=== PATIENT | male | born 1985 | race Caucasian/White ===

== ENCOUNTER 2019-10-08 12:44 | Observation (INO) | payer BC ==
[2019-10-08] MEDS ORDERED: Sodium Chloride 0.9% 10 ML Syringe FLUSH PRN ×2 (12:58→19:43)
[2019-10-08] MEDS ORDERED: Aspirin 81 MG Tab.Chew PO ONE (12:58)
[2019-10-08] MEDS ORDERED: Sodium Chloride 0.9% 2.5 ML Syringe FLUSH PRN ×2 (12:58→19:43)
[2019-10-08] MEDS ORDERED: Sodium Chloride 0.9% 1,000 ML IV ONE ×3 (13:10→16:51)
--- NOTE | 2019-10-08 13:32 | EDM.PDOC ---
ED HPI GENERAL MEDICAL PROBLEM - General Chief Complaint: Chest Pain Stated Complaint: chest pain Time Seen by Provider: 10/08/19 12:56 - History of Present Illness INITIAL COMMENTS - FREE TEXT/NARRATIVE: History of present illness: 34-year-old male presenting with left-sided chest pain over the left lower rib starting just prior to arrival here. For started to feel a fluttering sensation in the chest while sitting, driving his car. Then started to feel a discomfort, mostly described as a sharp sensation. Does report some prior episodes of this in the past but never sought medical care. Pain does not radiate anywhere else. He does report some worsening of pain with deep inspiration. Otherwise previously healthy. The patient does drive throughout the day for work but reports he frequently gets out of the car and walks around making many stops during his long driving day. Review of systems: As per history of present illness and below otherwise all systems reviewed and negative. Past medical history: As per history of present illness and as reviewed below otherwise noncontributory. Surgical history: As per history of present illness and as reviewed below otherwise noncontributory. Social history: No reported history of drug or alcohol abuse. Chewing tobacco. Family history: As per history of present illness and as reviewed below otherwise noncontributory. Physical exam: GEN: no acute distress, well appearing HEENT: Atraumatic, normocephalic, mucous membranes moist, Neck: supple, nontender, trachea midline. Lungs: No respiratory distress. Heart: Mildly tachycardic Abdomen: Soft, nondistended, nontender. Back: nontender Extremities: Atraumatic. Neurovascularly intact. Neuro: Awake, alert, oriented. Neuro Exam nonfocal. Psych, appears very anxious Skin: warm, dry, no lesions Diagnostics: Chest x-ray, EKG, labs, d-dimer Therapeutics: Aspirin, fluids MDM: Impression: [] Plan: [] Definitive disposition and diagnosis as appropriate pending reevaluation and review of above. Left Sternal/Arm Pain Score (Numeric/FACES): 3 - Related Data Allergies Allergy/AdvReac Type Severity Reaction Status Date / Time azithromycin [From Zithromax] Allergy Hives Verified 10/08/19 12:51 Home Meds: Home Meds . [No Known Home Meds] 02/16/15 [History] Past Medical History - Infectious Disease History Infectious Disease History: Reports: None - Past Surgical History HEENT Surgical History: Reports: Oral Surgery, Tonsillectomy Social & Family History - Family History Family Medical History: Noncontributory - Tobacco Use Smoking Status *Q: Never Smoker - Recreational Drug Use Recreational Drug Use: No ED ROS GENERAL - Review of Systems Review Of Systems: See Below (See HPI) ED EXAM, GENERAL - Physical Exam Exam: See Below (see HPI) EKG INTERPRETATION EKG Interpretation Comments: EKG performed today at 12:44 PM sinus tachycardia, rate 109, borderline i ntraventricular conduction delay, borderline prolonged QT interval. No STEMI Course - Vital Signs Text/Narrative:: Low risk for coronary artery disease. Heart score 1. Symptoms started at rest. Is mildly tachycardic. Appears very anxious. However patient also does drive for hours a day. Otherwise low risk for PE/DVT. Will check d-dimer. Family history of cardiac disease in the 60s, no young cardiac . D-dimer negative. Slightly hypokalemic, otherwise labs unremarkable. Troponin negative. Patient feeling much improved after Ativan given. Plan is for discharge, however the patient is still mildly tachycardic. Therefore additional liter will be given. Still tachycardic on multiple reassessments, and despite rest and IVF rehydration, potassium repletion. Therefore decision to CTA chest to evaluate for other pathology. CT scan shows small peripheral L sided pulmonary emboli and ascending aortic aneurysm, no rupture or dissection. Patient is in no distress and with normal HR on reassessment, O2 saturation has been stable. Discussed need for admission and anticoagulation as well as all results with patient. He agrees with plan. Last Recorded V/S: Last Vital Signs Temp 98.9 F 10/08/19 12:51 Pulse 101 H 10/08/19 18:06 Resp 16 10/08/19 18:06 BP 129/87 10/08/19 18:06 Pulse Ox 98 10/08/19 18:06 - Orders/Labs/Meds Orders: Active Orders 24 hr Category Date Time Status Patient Status [ADT] Routine ADT 10/08/19 19:44 Active Cardiac Monitoring [RC] . DIRECTED Care 10/08/19 12:57 Active EKG Documentation Completion [RC] STAT Care 10/08/19 12:57 Active CORONAVIRUS COVID-19 SHELBY [MOLEC] Stat Lab 10/08/19 20:35 Received Sodium Chloride 0.9% [Saline Flush] Med 10/08/19 12:58 Active 10 ml FLUSH ASDIRECTED PRN Sodium Chloride 0.9% [Saline Flush] Med 10/08/19 19:43 Active 10 ml FLUSH ASDIRECTED PRN Sodium Chloride 0.9% [Saline Flush] [facility] 10/08/19 12:58 Active 2.5 ml FLUSH ASDIRECTED PRN Sodium Chloride 0.9% [Saline Flush] [facility] 10/08/19 19:43 Active 2.5 ml FLUSH ASDIRECTED PRN Saline Lock Insert [OM.PC] Stat Ot 10/08/19 12:57 Ordered Saline Lock Insert [OM.PC] Stat Ot 10/08/19 19:43 Ordered Medication Orders Sodium Chloride (Saline Flush) 10 ml FLUSH ASDIRECTED PRN PRN Reason: Keep Vein Open Last Admin: 10/08/19 13:16 Dose: 10 ml Documented by: [id number] Sodium Chloride (Saline Flush) 2.5 ml FLUSH ASDIRECTED PRN PRN Reason: Keep Vein Open Last Admin: 10/08/19 13:16 Dose: 2.5 ml Documented by: [id number] Sodium Chloride (Saline Flush) 10 ml FLUSH ASDIRECTED PRN PRN Reason: Keep Vein Open Sodium Chloride (Saline Flush) 2.5 ml FLUSH ASDIRECTED PRN PRN Reason: Keep Vein Open Labs: Laboratory Tests 10/08/19 10/08/19 10/08/19 Range/Units 13:00 13:00 13:00 WBC 7.16 (4.0-11.0) K/uL RBC 4.81 (4.50-5.90) M/uL Hgb 16.8 (13.0-17.0) g/dL Hct 48.4 (38.0-50.0) % MCV 100.6 H (80.0-98.0) fL MCH 34.9 H (27.0-32.0) pg MCHC 34.7 (31.0-37.0) g/dL RDW Std Deviation 48.7 (28.0-62.0) fl RDW Coeff of Glenis 13 (11.0-15.0) % Plt Count 249 (150-400) K/uL MPV 10.50 (7.40-12.00) fL Neut % (Auto) 64.2 (48.0-80.0) % Lymph % (Auto) 27.9 (16.0-40.0) % Grant % (Auto) 7.1 (0.0-15.0) % Eos % (Auto) 0.4 (0.0-7.0) % Baso % (Auto) 0.4 (0.0-1.5) % Neut # (Auto) 4.6 (1.4-5.7) K/uL Lymph # (Auto) 2.0 (0.6-2.4) K/uL Grant # (Auto) 0.5 (0.0-0.8) K/uL Eos # (Auto) 0.0 (0.0-0.7) K/uL Baso # (Auto) 0.0 (0.0-0.1) K/uL Nucleated RBC % 0.0 /100WBC Nucleated RBCs # 0 K/uL INR APTT (18.6-31.3) SEC D-Dimer, Quantitative 0.29 (0.0-0.50) mg/L FEU Sodium 140 (136-148) mmol/L Potassium 3.0 L (3.5-5.1) mmol/L Chloride 101 (98-107) mmol/L Carbon Dioxide 20.5 L (21.0-32.0) mmol/L BUN 10 (7.0-18.0) mg/dL Creatinine 1.1 (0.8-1.3) mg/dL Est Cr Clr Drug Dosing 112.09 mL/min Estimated GFR (MDRD) > 60.0 ml/min Glucose 91 (74-106) mg/dL Calcium 9.5 (8.5-10.1) mg/dL Magnesium (1.8-2.4) mg/dL Total Bilirubin 0.6 (0.2-1.0) mg/dL AST 23 (15-37) IU/L ALT 44 (14-63) IU/L Alkaline Phosphatase 69 (46-116) U/L Troponin I < 0.050 (0.000-0.056) ng/mL Total Protein 8.7 H (6.4-8.2) g/dL Albumin 4.8 (3.4-5.0) g/dL Globulin 3.9 (2.6-4.0) g/dL Albumin/Globulin Ratio 1.2 (0.9-1.6) 10/08/19 10/08/19 10/08/19 Range/Units 13:00 19:35 19:35 WBC (4.0-11.0) K/uL RBC (4.50-5.90) M/uL Hgb (13.0-17.0) g/dL Hct (38.0-50.0) % MCV (80.0-98.0) fL MCH (27.0-32.0) pg MCHC (31.0-37.0) g/dL RDW Std Deviation (28.0-62.0) fl RDW Coeff of Glenis (11.0-15.0) % Plt Count (150-400) K/uL MPV (7.40-12.00) fL Neut % (Auto) (48.0-80.0) % Lymph % (Auto) (16.0-40.0) % Grant % (Auto) (0.0-15.0) % Eos % (Auto) (0.0-7.0) % Baso % (Auto) (0.0-1.5) % Neut # (Auto) (1.4-5.7) K/uL Lymph # (Auto) (0.6-2.4) K/uL Grant # (Auto) (0.0-0.8) K/uL Eos # (Auto) (0.0-0.7) K/uL Baso # (Auto) (0.0-0.1) K/uL Nucleated RBC % /100WBC Nucleated RBCs # K/uL INR 0.96 APTT 25.2 (18.6-31.3) SEC D-Dimer, Quantitative (0.0-0.50) mg/L FEU Sodium (136-148) mmol/L Potassium (3.5-5.1) mmol/L Chloride (98-107) mmol/L Carbon Dioxide (21.0-32.0) mmol/L BUN (7.0-18.0) mg/dL Creatinine (0.8-1.3) mg/dL Est Cr Clr Drug Dosing mL/min Estimated GFR (MDRD) ml/min Glucose (74-106) mg/dL Calcium (8.5-10.1) mg/dL Magnesium 2.1 (1.8-2.4) mg/dL Total Bilirubin (0.2-1.0) mg/dL AST (15-37) IU/L ALT (14-63) IU/L Alkaline Phosphatase (46-116) U/L Troponin I < 0.050 (0.000-0.056) ng/mL Total Protein (6.4-8.2) g/dL Albumin (3.4-5.0) g/dL Globulin (2.6-4.0) g/dL Albumin/Globulin Ratio (0.9-1.6) Meds: Medications Generic Name Dose Route Start Last Admin Trade Name Julitoq PRN Reason Stop Dose Admin Sodium Chloride 10 ml 10/08/19 12:58 10/08/19 13:16 Saline Flush FLUSH 10 ml ASDIRECTED PRN Administration Keep Vein Open Sodium Chloride 2.5 ml 10/08/19 12:58 10/08/19 13:16 Saline Flush FLUSH 2.5 ml ASDIRECTED PRN Administration Keep Vein Open Sodium Chloride 10 ml 10/08/19 19:43 Saline Flush FLUSH ASDIRECTED PRN Keep Vein Open Sodium Chloride 2.5 ml 10/08/19 19:43 Saline Flush FLUSH ASDIRECTED PRN Keep Vein Open Discontinued Medications Generic Name Dose Route Start Last Admin Trade Name Freq PRN Reason Stop Dose Admin Aspirin 324 mg 10/08/19 12:58 10/08/19 13:08 Aspirin PO 10/08/19 12:59 324 mg ONETIME ONE Administration Enoxaparin Sodium 90 mg 10/08/19 19:17 10/08/19 20:39 Lovenox 1 mg/kg (90 mg) 10/08/19 19:18 90 mg SUBCUT Administration ONETIME ONE Sodium Chloride 1,000 mls @ 999 mls/hr 10/08/19 13:10 10/08/19 13:15 Normal Saline IV 10/08/19 14:10 999 mls/hr .Bolus ONE Administration Sodium Chloride 1,000 mls @ 999 mls/hr 10/08/19 15:36 10/08/19 15:41 Normal Saline IV 10/08/19 16:36 999 mls/hr .Bolus ONE Administration Sodium Chloride 1,000 mls @ 999 mls/hr 10/08/19 16:51 10/08/19 16:55 Normal Saline IV 10/08/19 17:51 999 mls/hr .Bolus ONE Administration Iopamidol 75 ml 10/08/19 18:27 10/08/19 18:28 Isovue Multipack-370 (76%) IVPUSH 10/08/19 18:28 75 ml ONETIME STA Administration Lorazepam 1 mg 10/08/19 13:49 10/08/19 13:53 Ativan IVPUSH 10/08/19 13:50 1 mg ONETIME ONE Administration Potassium Chloride 40 meq 10/08/19 15:08 10/08/19 15:32 Klor-Con M20 PO 10/08/19 15:09 40 meq ONETIME ONE Administration - Re-Assessments/Exams Free Text/Narrative Re-Assessment/Exam: 10/08/19 15:03 Patient resting comfortably and in no acute distress. Feeling much better. Appears less anxious. Still slightly tachycardic. Discussed all results with the patient. Discussed low potassium levels and plan for potassium repletion p.o. here and discharged with potassium supplementation via potassium rich foods. We will discharge. 10/08/19 16:05 ZiO monitor will be obtained and attached to the patient for heart rhythm monitoring and for outpatient follow-up. 10/08/19 16:49 Patient is feeling symptomatically improved. He has now received 2 L of fluid. He still does not have to urinate. He may be somewhat dehydrated. Third liter of fluid will be given. On vital sign reassessment, his heart rate is now ranging in the 96-102 range, however the patient is low risk for pulmonary embolism and had a negative d-dimer, I am concerned about his heart rate still being elevated and therefore CT Marii of the chest will be ordered to evaluate for possible pulmonary embolism. 10/08/19 19:12 Discussed results of the CT scan with the patient and need for admission to the hospital. Discussed pulmonary emboli and a sending aortic aneurysm that is currently stable, discussed that the patient will need outpatient follow-up and close monitoring of this aneurysm but no immediate surgery as it is not ruptured or dissecting at this time. 10/08/19 19:42 Dr. Ricks called back. We discussed the case. He accepts the patient for admission. Request to place the patient under observation, telemetry. Departure - Departure Time of Disposition: 15:34 Disposition: Refer to Observation Clinical Impression: Chest pain, Palpitations, Hypokalemia, Pulmonary embolism, Ascending aortic aneurysm Instructions: Hypokalemia, Nonspecific Chest Pain, Adult, [id number], Palpitations, [id number], Potassium Content of Foods Referrals: PCP,None [Primary Care Provider] - Forms: ED Department Discharge Additional Instructions: Drink plenty of fluids. Please supplement potassium with the potassium rich foods listed below. Return to the emergency department if you feel severe pain. The ZIO patch has been attached to you, please keep this on at all times. This information about your heart rate and rhythm will be forwarded to a physician and you will need to follow-up with that physician to discuss your rhythm. If you develop any severe chest pain or worsening symptoms please return immediately to the emergency department. The following information is given to patients seen in the emergency department who are being discharged to home. This information is to outline your options for follow-up care. We provide all patients seen in our emergency department with a follow-up referral. The need for follow-up, as well as the timing and circumstances, are variable depending upon the specifics of your emergency department visit. If you don't have a primary care physician on staff, we will provide you with a referral. We always advise you to contact your personal physician following an emergency department visit to inform them of the circumstance of the visit and for follow-up with them and/or the need for any referrals to a consulting specialist. The emergency department will also refer you to a specialist when appropriate. This referral assures that you have the opportunity for follow-up care with a specialist. All of these measure are taken in an effort to provide you with optimal care, which includes your follow-up. Under all circumstances we always encourage you to contact your private physician who remains a resource for coordinating your care. When calling for follow-up care, please make the office aware that this follow-up is from your recent emergency room visit. If for any reason you are refused follow-up, please contact the [facility] Emergency Department at and asked to speak to the emergency department charge nurse. [facility] [address] [place] [address] [facility] [address] [place] [address] Sepsis Event Note (ED) - Evaluation Sepsis Screening Result: No Definite Risk - Focused Exam Vital Signs: Vital Signs Temp Pulse Resp BP Pulse Ox 10/08/19 18:06 101 H 16 129/87 98 10/08/19 15:32 101 H 16 111/64 100 10/08/19 12:51 98.9 F 109 H 20 136/89 98 - My Orders Last 24 Hours: My Active Orders 10/08/19 12:57 Cardiac Monitoring [RC] . DIRECTED EKG Documentation Completion [RC] STAT Saline Lock Insert [OM.PC] Stat 10/08/19 12:58 Sodium Chloride 0.9% [Saline Flush] 10 ml FLUSH ASDIRECTED PRN Sodium Chloride 0.9% [Saline Flush] 2.5 ml FLUSH ASDIRECTED PRN 10/08/19 19:43 Sodium Chloride 0.9% [Saline Flush] 10 ml FLUSH ASDIRECTED PRN Sodium Chloride 0.9% [Saline Flush] 2.5 ml FLUSH ASDIRECTED PRN Saline Lock Insert [OM.PC] Stat 10/08/19 19:44 Patient Status [ADT] Routine 10/08/19 20:35 CORONAVIRUS COVID-19 SHELBY [MOLEC] Stat - Assessment/Plan Last 24 Hours: My Active Orders 10/08/19 12:57 Cardiac Monitoring [RC] . DIRECTED EKG Documentation Completion [RC] STAT Saline Lock Insert [OM.PC] Stat 10/08/19 12:58 Sodium Chloride 0.9% [Saline Flush] 10 ml FLUSH ASDIRECTED PRN Sodium Chloride 0.9% [Saline Flush] 2.5 ml FLUSH ASDIRECTED PRN 10/08/19 19:43 Sodium Chloride 0.9% [Saline Flush] 10 ml FLUSH ASDIRECTED PRN Sodium Chloride 0.9% [Saline Flush] 2.5 ml FLUSH ASDIRECTED PRN Saline Lock Insert [OM.PC] Stat 10/08/19 19:44 Patient Status [ADT] Routine 10/08/19 20:35 CORONAVIRUS COVID-19 SHELBY [MOLEC] Stat
[2019-10-08 13:34] LABS: BLOOD UREA NITROGEN,BUN 10 mg/dL (7.0-18.0); CARBON DIOXIDE,CO2 20.5 mmol/L (21.0-32.0); CHLORIDE,CL 101 mmol/L (98-107); GLUCOSE RANDOM 91 mg/dL (74-106); SODIUM,NA 140 mmol/L (136-148)
[2019-10-08] MEDS ORDERED: LORazepam 2 MG/ML SDV IVPUSH ONE (13:49)
[2019-10-08] MEDS ORDERED: Potassium Chloride 20 MEQ Tab.ER PO ONE (15:08)
--- NOTE | 2019-10-08 15:28 | CR ---
Chest: Portable view of the chest was obtained. Comparison: No prior chest imaging is available. Heart size and mediastinum are normal. Lungs are clear with no acute parenchymal change. Bony structures are grossly intact. Impression: 1. Nothing acute is seen on portable chest x-ray. Diagnostic code #1 This report was dictated in MDT
[2019-10-08] MEDS ORDERED: Iopamidol 755 MG/ML 500 ML Multipack Bottle IVPUSH STA (18:27)
--- NOTE | 2019-10-08 18:58 | CT ---
INDICATION: Chest pain and shortness of breath. TECHNIQUE: CT chest PE was acquired with 50 cc Isovue 370 IV contrast. COMPARISON: None. FINDINGS: Heart and vasculature: Few very small peripheral filling defects are present, particularly in the left lower lobe, these may or may not represent small pulmonary emboli. No large or central embolism evident. Heart size is normal.Pulmonary arteries normal in caliber. Ascending aorta is dilated up to 4.1 cm. Lungs and pleural: No suspicious nodules or infiltrates. No pleural effusions, pleural thickening, or pneumothorax. Lymph nodes/mediastinum: No mediastinal, hilar, or axillary adenopathy. Thyroid gland is normal. Chest wall: No masses. Upper abdomen: Normal. Bones: Unremarkable for age. IMPRESSION: 1. Possible tiny peripheral pulmonary emboli particularly in the left lower lobe. 2. Ascending aortic aneurysm measures 4.1 cm. 3. Remainder of the exam is unremarkable. No other finding to explain chest pain or shortness of breath. Please note that all CT scans at this facility use dose modulation, iterative reconstruction, and/or weight-based dosing when appropriate to reduce radiation dose to as low as reasonably achievable. Dictated by Devin Castillo MD @ Oct 08 2019 6:47PM Signed by Dr. Devin Castillo @ Oct 08 2019 6:56PM
[2019-10-08] MEDS ORDERED: Enoxaparin 100 MG/1 ML Syringe SUBCUT ONE (19:17)
--- NOTE | 2019-10-08 23:27 | PCM.HP.2 ---
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 He then hyperventilated and got lightheaded. Patient reports he has been having alot of stress at work. IN the ED he was noted to have a HR of 120s. He was given IV fluids and ativan but it did not lower his heart rate. CT scan reported possible tiny peripheral PE and ascending aorta of 4.1 cm. Left Sternal/Arm Pain Score (Numeric/FACES): 3 - Related Data Allergies/Adverse Reactions: Allergies Allergy/AdvReac Type Severity Reaction Status Date / Time azithromycin [From Zithromax] Allergy Hives Verified 10/08/19 22:21 Home Medications: Home Meds . [No Known Home Meds] 02/16/15 [History] Past Medical History - Infectious Disease History Infectious Disease History: Reports: None - Past Surgical History HEENT Surgical History: Reports: Oral Surgery, Tonsillectomy Social & Family History - Family History Family Medical History: Noncontributory - Tobacco Use Smoking Status *Q: Never Smoker - Caffeine Use Caffeine Use: Reports: Coffee, Tea - Recreational Drug Use Recreational Drug Use: No H&P Review of Systems - Review of Systems: Review Of Systems: Comprehensive ROS is negative, except as noted in HPI. Exam - Exam Exam: See Below - Vital Signs Vital Signs: Last Vital Signs Temp 37.2 C 10/08/19 12:51 Pulse 101 H 10/08/19 18:06 Resp 16 10/08/19 18:06 BP 129/87 10/08/19 18:06 Pulse Ox 98 10/08/19 18:06 Weight: 87.044 kg - Exam General: Alert, Oriented HEENT: Mucosa Moist & Toast Neck: Supple Lungs: Clear to Auscultation, Normal Respiratory Effort Cardiovascular: Regular Rate, Regular Rhythm GI/Abdominal Exam: Normal Bowel Sounds, Soft, Non-Tender Extremities: Non-Tender, No Pedal Edema Skin: Warm, Dry, Intact Neurological: Cranial Nerves Intact - Patient Data Lab Results Last 24 hrs: Laboratory Results - last 24 hr 10/08/19 10/08/19 10/08/19 Range/Units 13:00 13:00 13:00 WBC 7.16 (4.0-11.0) K/uL RBC 4.81 (4.50-5.90) M/uL Hgb 16.8 (13.0-17.0) g/dL Hct 48.4 (38.0-50.0) % MCV 100.6 H (80.0-98.0) fL MCH 34.9 H (27.0-32.0) pg MCHC 34.7 (31.0-37.0) g/dL RDW Std Deviation 48.7 (28.0-62.0) fl RDW Coeff of Glenis 13 (11.0-15.0) % Plt Count 249 (150-400) K/uL MPV 10.50 (7.40-12.00) fL Neut % (Auto) 64.2 (48.0-80.0) % Lymph % (Auto) 27.9 (16.0-40.0) % [place] % (Auto) 7.1 (0.0-15.0) % Eos % (Auto) 0.4 (0.0-7.0) % Baso % (Auto) 0.4 (0.0-1.5) % Neut # (Auto) 4.6 (1.4-5.7) K/uL Lymph # (Auto) 2.0 (0.6-2.4) K/uL [place] # (Auto) 0.5 (0.0-0.8) K/uL Eos # (Auto) 0.0 (0.0-0.7) K/uL Baso # (Auto) 0.0 (0.0-0.1) K/uL Nucleated RBC % 0.0 /100WBC Nucleated RBCs # 0 K/uL INR APTT (18.6-31.3) SEC D-Dimer, Quantitative 0.29 (0.0-0.50) mg/L FEU Sodium 140 (136-148) mmol/L Potassium 3.0 L (3.5-5.1) mmol/L Chloride 101 (98-107) mmol/L Carbon Dioxide 20.5 L (21.0-32.0) mmol/L BUN 10 (7.0-18.0) mg/dL Creatinine 1.1 (0.8-1.3) mg/dL Est Cr Clr Drug Dosing 112.09 mL/min Estimated GFR (MDRD) > 60.0 ml/min Glucose 91 (74-106) mg/dL Calcium 9.5 (8.5-10.1) mg/dL Magnesium (1.8-2.4) mg/dL Total Bilirubin 0.6 (0.2-1.0) mg/dL AST 23 (15-37) IU/L ALT 44 (14-63) IU/L Alkaline Phosphatase 69 (46-116) U/L Troponin I < 0.050 (0.000-0.056) ng/mL Total Protein 8.7 H (6.4-8.2) g/dL Albumin 4.8 (3.4-5.0) g/dL Globulin 3.9 (2.6-4.0) g/dL Albumin/Globulin Ratio 1.2 (0.9-1.6) SARS Virus RNA (PCR) (NEGATIVE) 10/08/19 10/08/19 10/08/19 Range/Units 13:00 19:35 19:35 WBC (4.0-11.0) K/uL RBC (4.50-5.90) M/uL Hgb (13.0-17.0) g/dL Hct (38.0-50.0) % MCV (80.0-98.0) fL MCH (27.0-32.0) pg MCHC (31.0-37.0) g/dL RDW Std Deviation (28.0-62.0) fl RDW Coeff of Glenis (11.0-15.0) % Plt Count (150-400) K/uL MPV (7.40-12.00) fL Neut % (Auto) (48.0-80.0) % Lymph % (Auto) (16.0-40.0) % [place] % (Auto) (0.0-15.0) % Eos % (Auto) (0.0-7.0) % Baso % (Auto) (0.0-1.5) % Neut # (Auto) (1.4-5.7) K/uL Lymph # (Auto) (0.6-2.4) K/uL [place] # (Auto) (0.0-0.8) K/uL Eos # (Auto) (0.0-0.7) K/uL Baso # (Auto) (0.0-0.1) K/uL Nucleated RBC % /100WBC Nucleated RBCs # K/uL INR 0.96 APTT 25.2 (18.6-31.3) SEC D-Dimer, Quantitative (0.0-0.50) mg/L FEU Sodium (136-148) mmol/L Potassium (3.5-5.1) mmol/L Chloride (98-107) mmol/L Carbon Dioxide (21.0-32.0) mmol/L BUN (7.0-18.0) mg/dL Creatinine (0.8-1.3) mg/dL Est Cr Clr Drug Dosing mL/min Estimated GFR (MDRD) ml/min Glucose (74-106) mg/dL Calcium (8.5-10.1) mg/dL Magnesium 2.1 (1.8-2.4) mg/dL Total Bilirubin (0.2-1.0) mg/dL AST (15-37) IU/L ALT (14-63) IU/L Alkaline Phosphatase (46-116) U/L Troponin I < 0.050 (0.000-0.056) ng/mL Total Protein (6.4-8.2) g/dL Albumin (3.4-5.0) g/dL Globulin (2.6-4.0) g/dL Albumin/Globulin Ratio (0.9-1.6) SARS Virus RNA (PCR) (NEGATIVE) 10/08/19 Range/Units 20:35 WBC (4.0-11.0) K/uL RBC (4.50-5.90) M/uL Hgb (13.0-17.0) g/dL Hct (38.0-50.0) % MCV (80.0-98.0) fL MCH (27.0-32.0) pg MCHC (31.0-37.0) g/dL RDW Std Deviation (28.0-62.0) fl RDW Coeff of Glenis (11.0-15.0) % Plt Count (150-400) K/uL MPV (7.40-12.00) fL Neut % (Auto) (48.0-80.0) % Lymph % (Auto) (16.0-40.0) % [place] % (Auto) (0.0-15.0) % Eos % (Auto) (0.0-7.0) % Baso % (Auto) (0.0-1.5) % Neut # (Auto) (1.4-5.7) K/uL Lymph # (Auto) (0.6-2.4) K/uL [place] # (Auto) (0.0-0.8) K/uL Eos # (Auto) (0.0-0.7) K/uL Baso # (Auto) (0.0-0.1) K/uL Nucleated RBC % /100WBC Nucleated RBCs # K/uL INR APTT (18.6-31.3) SEC D-Dimer, Quantitative (0.0-0.50) mg/L FEU Sodium (136-148) mmol/L Potassium (3.5-5.1) mmol/L Chloride (98-107) mmol/L Carbon Dioxide (21.0-32.0) mmol/L BUN (7.0-18.0) mg/dL Creatinine (0.8-1.3) mg/dL Est Cr Clr Drug Dosing mL/min Estimated GFR (MDRD) ml/min Glucose (74-106) mg/dL Calcium (8.5-10.1) mg/dL Magnesium (1.8-2.4) mg/dL Total Bilirubin (0.2-1.0) mg/dL AST (15-37) IU/L ALT (14-63) IU/L Alkaline Phosphatase (46-116) U/L Troponin I (0.000-0.056) ng/mL Total Protein (6.4-8.2) g/dL Albumin (3.4-5.0) g/dL Globulin (2.6-4.0) g/dL Albumin/Globulin Ratio (0.9-1.6) SARS Virus RNA (PCR) NEGATIVE (NEGATIVE) Result Diagrams: 10/08/19 13:00 10/08/19 13:00 Sepsis Event Note - Evaluation Sepsis Screening Result: No Definite Risk - Focused Exam Vital Signs: Vital Signs Temp Pulse Resp BP Pulse Ox 10/08/19 18:06 101 H 16 129/87 98 10/08/19 15:32 101 H 16 111/64 100 10/08/19 12:51 37.2 C 109 H 20 136/89 98 Date Exam was Performed: 10/08/19 Time Exam was Performed: 23:22 Problem List Initiated/Reviewed/Updated: Yes Orders Last 24hrs: Active Orders 24 hr Category Date Time Status Patient Status [ADT] Routine ADT 10/08/19 19:44 Active Cardiac Monitoring [RC] . DIRECTED Care 10/08/19 12:57 Active Communication Order [RC] PRN Care 10/08/19 23:20 Active EKG Documentation Completion [RC] STAT Care 10/08/19 12:57 Active Oxygen Therapy [RC] PRN Care 10/08/19 23:20 Ordered Up ad Radha [RC] ASDIRECTED Care 10/08/19 23:20 Ordered VTE/DVT Education [RC] PER UNIT ROUTINE Care 10/08/19 23:20 Ordered Vital Signs [RC] Q4H Care 10/08/19 23:20 Ordered Regular Diet [DIET] Diet 10/08/19 Breakfast Ordered Echo Comp wo Cont [US] Routine Exams 10/08/19 23:22 Ordered BASIC METABOLIC PANEL,BMP [CHEM] AM Lab 10/09/19 05:11 Ordered CBC WITH AUTO DIFF [HEME] AM Lab 10/09/19 05:11 Ordered Enoxaparin [Lovenox] Med 10/09/19 07:00 Active 90 mg SUBCUT Q12H Sodium Chloride 0.9% [Saline Flush] Med 10/08/19 12:58 Active 10 ml FLUSH ASDIRECTED PRN Sodium Chloride 0.9% [Saline Flush] Med 10/08/19 19:43 Active 10 ml FLUSH ASDIRECTED PRN Sodium Chloride 0.9% [Saline Flush] Med 10/08/19 12:58 Active 2.5 ml FLUSH ASDIRECTED PRN Sodium Chloride 0.9% [Saline Flush] Med 10/08/19 19:43 Active 2.5 ml FLUSH ASDIRECTED PRN Saline Lock Insert [OM.PC] Stat Oth 10/08/19 12:57 Ordered Saline Lock Insert [OM.PC] Stat Oth 10/08/19 19:43 Ordered Resuscitation Status Routine Resus Stat 10/08/19 23:20 Ordered Medication Orders Enoxaparin Sodium (Lovenox) 90 mg SUBCUT Q12H SAMUEL Sodium Chloride (Saline Flush) 10 ml FLUSH ASDIRECTED PRN PRN Reason: Keep Vein Open Last Admin: 10/08/19 13:16 Dose: 10 ml Documented by: [id number] Sodium Chloride (Saline Flush) 2.5 ml FLUSH ASDIRECTED PRN PRN Reason: Keep Vein Open Last Admin: 10/08/19 13:16 Dose: 2.5 ml Documented by: [id number] Sodium Chloride (Saline Flush) 10 ml FLUSH ASDIRECTED PRN PRN Reason: Keep Vein Open Sodium Chloride (Saline Flush) 2.5 ml FLUSH ASDIRECTED PRN PRN Reason: Keep Vein Open Assessment/Plan Comment:: 34 yo male admitted for PE. Treating with Lovenox. If continues to be asymptomatic will switch to oral anticoagulants tomorrow. Patient was informed of his small thoracic aortic aneurysm and need for follow up.
[2019-10-09 06:37] LABS: BLOOD UREA NITROGEN,BUN 12 mg/dL (7.0-18.0); CARBON DIOXIDE,CO2 24.8 mmol/L (21.0-32.0); CHLORIDE,CL 104 mmol/L (98-107); GLUCOSE RANDOM 101 mg/dL (74-106); SODIUM,NA 139 mmol/L (136-148)
[2019-10-09] MEDS ORDERED: Enoxaparin 100 MG/1 ML Syringe SUBCUT SCH (07:00)
[2019-10-09 12:05] VITALS: BP 111/71; PULSE 72
--- NOTE | 2019-10-09 12:24 | PCM.DCSUM1 ---
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 He then hyperventilated and got lightheaded. Patient reports he has been having alot of stress at work. IN the ED he was noted to have a HR of 120s. He was given IV fluids and ativan but it did not lower his heart rate. CT scan reported possible tiny peripheral PE and ascending aorta of 4.1 cm. Diagnosis: Stroke: No Modified Hamilton Scale: No Symptoms at All Modified Hamilton Scale Score: 0 - Discharge Data Discharge Date: 10/09/19 Discharge Disposition: Home, Self-Care 01 Condition: Stable - Referral to Home Health Primary Care Physician: PCP None - Patient Summary/Data Hospital Course: Admitting diagnoses: PE Ascending aortic aneurysm- stable Discharge Diagnoses: PE Ascending aortic aneurysm- stable Jamil was admitted secondary to new found subsegmental small PEs as well as stable ascending aortic aneurysm, 4.[address] angio of chest which showed no dissection of aneurysm. This is a new finding. he will be set up with Cardiology for surveillence. ECHO obtained during stay and is pending. He was treated with Lovenox. He was counseled on tobacco cessation, chews tobacco. He will be discharged home on Eliquis 10 mg BID for7 days then 5 mg BID from then on for at least 3 months therapy. He is to follow up with PCP in 1 week and Cardiology as possible. He was also counseled on limiting activities that will increase risk of trauma or injury due to anticoagulation, also regarding signs of bleeding to monitor for. He is to return to ED or clinic if concerns should arise - Patient Instructions Diet: Regular Diet as Tolerated Activity: No Strenuous Activities, Rest and Relax Today Driving: May Drive Today Showering/Bathing: May Shower Notify Provider of: Fever, Increased Pain, Swelling and Redness, Drainage, Nausea and/or Vomiting - Discharge Plan *PRESCRIPTION DRUG MONITORING PROGRAM REVIEWED*: Not Applicable *COPY OF PRESCRIPTION DRUG MONITORING REPORT IN PATIENT VON: Not Applicable Prescriptions/Med Rec: Apixaban [Eliquis] 5 - 10 mg PO BID #88 tablet Home Medications: Home Meds Apixaban [Eliquis] 5 - 10 mg PO BID #88 tablet 10/09/19 [Rx] Oxygen Therapy Mode: Room Air Patient Handouts: Bleeding Precautions When on Anticoagulant Therapy, Adult, Hypokalemia, Nonspecific Chest Pain, Adult, Herm-os-Vash, Pulmonary Embolism, Palpitations, [id number], Potassium Content of Foods, Apixaban oral tablets Referrals: Pelon Haley MD [Physician] - 11/03/19 3:30 pm (bring all medication bottles that you have with you including vitamins or suppliments, show up 15 min early for registration) Isrrael Leiva MD [Physician] - Karly Bernabe NP [Nurse Practitioner] - 10/16/19 1:00 pm (arrive half hour early for screening process and check in. ) - Discharge Summary/Plan Comment DC Time >30 min.: No - Patient Data Vitals - Most Recent: Last Vital Signs Temp 97.9 F 10/09/19 12:00 Pulse 72 10/09/19 12:00 Resp 18 10/09/19 12:00 BP 111/71 10/09/19 12:00 Pulse Ox 97 10/09/19 12:00 Weight - Most Recent: 87.044 kg I&O - Last 24 hours: Intake & Output 10/08/19 10/09/19 10/09/19 22:59 06:59 14:59 Intake Total 680 Output Total 820 Balance -140 Lab Results - Last 24 hrs: Laboratory Results - last 24 hr 10/08/19 10/08/19 10/08/19 Range/Units 13:00 13:00 13:00 WBC 7.16 (4.0-11.0) K/uL RBC 4.81 (4.50-5.90) M/uL Hgb 16.8 (13.0-17.0) g/dL Hct 48.4 (38.0-50.0) % MCV 100.6 H (80.0-98.0) fL MCH 34.9 H (27.0-32.0) pg MCHC 34.7 (31.0-37.0) g/dL RDW Std Deviation 48.7 (28.0-62.0) fl RDW Coeff of [place]is 13 (11.0-15.0) % Plt Count 249 (150-400) K/uL MPV 10.50 (7.40-12.00) fL Neut % (Auto) 64.2 (48.0-80.0) % Lymph % (Auto) 27.9 (16.0-40.0) % [place] % (Auto) 7.1 (0.0-15.0) % Eos % (Auto) 0.4 (0.0-7.0) % Baso % (Auto) 0.4 (0.0-1.5) % Neut # (Auto) 4.6 (1.4-5.7) K/uL Lymph # (Auto) 2.0 (0.6-2.4) K/uL [place] # (Auto) 0.5 (0.0-0.8) K/uL Eos # (Auto) 0.0 (0.0-0.7) K/uL Baso # (Auto) 0.0 (0.0-0.1) K/uL Nucleated RBC % 0.0 /100WBC Nucleated RBCs # 0 K/uL INR APTT (18.6-31.3) SEC D-Dimer, Quantitative 0.29 (0.0-0.50) mg/L FEU Sodium 140 (136-148) mmol/L Potassium 3.0 L (3.5-5.1) mmol/L Chloride 101 (98-107) mmol/L Carbon Dioxide 20.5 L (21.0-32.0) mmol/L BUN 10 (7.0-18.0) mg/dL Creatinine 1.1 (0.8-1.3) mg/dL Est Cr Clr Drug Dosing 112.09 mL/min Estimated GFR (MDRD) > 60.0 ml/min Glucose 91 (74-106) mg/dL Calcium 9.5 (8.5-10.1) mg/dL Magnesium (1.8-2.4) mg/dL Total Bilirubin 0.6 (0.2-1.0) mg/dL AST 23 (15-37) IU/L ALT 44 (14-63) IU/L Alkaline Phosphatase 69 (46-116) U/L Troponin I < 0.050 (0.000-0.056) ng/mL Total Protein 8.7 H (6.4-8.2) g/dL Albumin 4.8 (3.4-5.0) g/dL Globulin 3.9 (2.6-4.0) g/dL Albumin/Globulin Ratio 1.2 (0.9-1.6) SARS Virus RNA (PCR) (NEGATIVE) 10/08/19 10/08/19 10/08/19 Range/Units 13:00 19:35 19:35 WBC (4.0-11.0) K/uL RBC (4.50-5.90) M/uL Hgb (13.0-17.0) g/dL Hct (38.0-50.0) % MCV (80.0-98.0) fL MCH (27.0-32.0) pg MCHC (31.0-37.0) g/dL RDW Std Deviation (28.0-62.0) fl RDW Coeff of Glenis (11.0-15.0) % Plt Count (150-400) K/uL MPV (7.40-12.00) fL Neut % (Auto) (48.0-80.0) % Lymph % (Auto) (16.0-40.0) % [place] % (Auto) (0.0-15.0) % Eos % (Auto) (0.0-7.0) % Baso % (Auto) (0.0-1.5) % Neut # (Auto) (1.4-5.7) K/uL Lymph # (Auto) (0.6-2.4) K/uL [place] # (Auto) (0.0-0.8) K/uL Eos # (Auto) (0.0-0.7) K/uL Baso # (Auto) (0.0-0.1) K/uL Nucleated RBC % /100WBC Nucleated RBCs # K/uL INR 0.96 APTT 25.2 (18.6-31.3) SEC D-Dimer, Quantitative (0.0-0.50) mg/L FEU Sodium (136-148) mmol/L Potassium (3.5-5.1) mmol/L Chloride (98-107) mmol/L Carbon Dioxide (21.0-32.0) mmol/L BUN (7.0-18.0) mg/dL Creatinine (0.8-1.3) mg/dL Est Cr Clr Drug Dosing mL/min Estimated GFR (MDRD) ml/min Glucose (74-106) mg/dL Calcium (8.5-10.1) mg/dL Magnesium 2.1 (1.8-2.4) mg/dL Total Bilirubin (0.2-1.0) mg/dL AST (15-37) IU/L ALT (14-63) IU/L Alkaline Phosphatase (46-116) U/L Troponin I < 0.050 (0.000-0.056) ng/mL Total Protein (6.4-8.2) g/dL Albumin (3.4-5.0) g/dL Globulin (2.6-4.0) g/dL Albumin/Globulin Ratio (0.9-1.6) SARS Virus RNA (PCR) (NEGATIVE) 10/08/19 10/09/19 10/09/19 Range/Units 20:35 06:05 06:05 WBC 6.14 (4.0-11.0) K/uL RBC 4.35 L (4.50-5.90) M/uL Hgb 14.9 (13.0-17.0) g/dL Hct 44.3 (38.0-50.0) % MCV 101.8 H (80.0-98.0) fL MCH 34.3 H (27.0-32.0) pg MCHC 33.6 (31.0-37.0) g/dL RDW Std Deviation 49.5 (28.0-62.0) fl RDW Coeff of [place]is 13 (11.0-15.0) % Plt Count 211 (150-400) K/uL MPV 10.60 (7.40-12.00) fL Neut % (Auto) 62.8 (48.0-80.0) % Lymph % (Auto) 26.1 (16.0-40.0) % [place] % (Auto) 9.3 (0.0-15.0) % Eos % (Auto) 1.5 (0.0-7.0) % Baso % (Auto) 0.3 (0.0-1.5) % Neut # (Auto) 3.9 (1.4-5.7) K/uL Lymph # (Auto) 1.6 (0.6-2.4) K/uL [place] # (Auto) 0.6 (0.0-0.8) K/uL Eos # (Auto) 0.1 (0.0-0.7) K/uL Baso # (Auto) 0.0 (0.0-0.1) K/uL Nucleated RBC % 0.0 /100WBC Nucleated RBCs # 0 K/uL INR APTT (18.6-31.3) SEC D-Dimer, Quantitative (0.0-0.50) mg/L FEU Sodium 139 (136-148) mmol/L Potassium 4.0 (3.5-5.1) mmol/L Chloride 104 (98-107) mmol/L Carbon Dioxide 24.8 (21.0-32.0) mmol/L BUN 12 (7.0-18.0) mg/dL Creatinine 1.0 (0.8-1.3) mg/dL Est Cr Clr Drug Dosing 123.30 mL/min Estimated GFR (MDRD) > 60.0 ml/min Glucose 101 (74-106) mg/dL Calcium 8.4 L (8.5-10.1) mg/dL Magnesium (1.8-2.4) mg/dL Total Bilirubin (0.2-1.0) mg/dL AST (15-37) IU/L ALT (14-63) IU/L Alkaline Phosphatase (46-116) U/L Troponin I (0.000-0.056) ng/mL Total Protein (6.4-8.2) g/dL Albumin (3.4-5.0) g/dL Globulin (2.6-4.0) g/dL Albumin/Globulin Ratio (0.9-1.6) SARS Virus RNA (PCR) NEGATIVE (NEGATIVE) Med Orders - Current: Current Medications Enoxaparin Sodium (Lovenox) 90 mg SUBCUT Q12H [facility] Last Admin: 10/09/19 06:55 Dose: 90 mg Documented by: Sodium Chloride (Saline Flush) 10 ml FLUSH ASDIRECTED PRN PRN Reason: Keep Vein Open Last Admin: 10/08/19 13:16 Dose: 10 ml Documented by: Sodium Chloride (Saline Flush) 2.5 ml FLUSH ASDIRECTED PRN PRN Reason: Keep Vein Open Last Admin: 10/08/19 13:16 Dose: 2.5 ml Documented by: Sodium Chloride (Saline Flush) 10 ml FLUSH ASDIRECTED PRN PRN Reason: Keep Vein Open Sodium Chloride (Saline Flush) 2.5 ml FLUSH ASDIRECTED PRN PRN Reason: Keep Vein Open Discontinued Medications Aspirin (Aspirin) 324 mg PO ONETIME ONE Stop: 10/08/19 12:59 Last Admin: 10/08/19 13:08 Dose: 324 mg Documented by: Enoxaparin Sodium (Lovenox) 90 mg 1 mg/kg (90 mg) SUBCUT ONETIME ONE Stop: 10/08/19 19:18 Last Admin: 10/08/19 20:39 Dose: 90 mg Documented by: Sodium Chloride (Normal Saline) 1,000 mls @ 999 mls/hr IV .Bolus ONE Stop: 10/08/19 14:10 Last Admin: 10/08/19 13:15 Dose: 999 mls/hr Documented by: Sodium Chloride (Normal Saline) 1,000 mls @ 999 mls/hr IV .Bolus ONE Stop: 10/08/19 16:36 Last Admin: 10/08/19 15:41 Dose: 999 mls/hr Documented by: Sodium Chloride (Normal Saline) 1,000 mls @ 999 mls/hr IV .Bolus ONE Stop: 10/08/19 17:51 Last Admin: 10/08/19 16:55 Dose: 999 mls/hr Documented by: Iopamidol (Isovue Multipack-370 (76%)) 75 ml IVPUSH ONETIME STA Stop: 10/08/19 18:28 Last Admin: 10/08/19 18:28 Dose: 75 ml Documented by: Lorazepam (Ativan) 1 mg IVPUSH ONETIME ONE Stop: 10/08/19 13:50 Last Admin: 10/08/19 13:53 Dose: 1 mg Documented by: Potassium Chloride (Klor-Con M20) 40 meq PO ONETIME ONE Stop: 10/08/19 15:09 Last Admin: 10/08/19 15:32 Dose: 40 meq Documented by: - Exam Quality Assessment: Denies: Supplemental Oxygen, DVT Prophylaxis General: Reports: Alert, Oriented Neck: Reports: Supple Lungs: Reports: Clear to Auscultation, Normal Respiratory Effort Cardiovascular: Reports: Regular Rate, Regular Rhythm GI/Abdominal Exam: Normal Bowel Sounds, Soft, Non-Tender Extremities: Normal Inspection, Normal Range of Motion, Non-Tender Neurological: Reports: No New Focal Deficit Psy/Mental Status: Reports: Alert, Normal Affect, Normal Mood
== END 2019-10-09 13:44 | disposition home or self-care (01) ==
LOC: MW.ED 12:44 → UNDOADMOB 21:53 → MW.MS 21:53
PROVIDERS: ADMIT Internal Medicine; ATTEND Internal Medicine
DX: I26.99 Other pulmonary embolism without acute cor pulmonale (principal); I71.2 Thoracic aortic aneurysm, without rupture; E87.6 Hypokalemia; Z20.828 Contact with and (suspected) exposure to other viral communicable diseases; Z88.1 Allergy status to other antibiotic agents
CPT/HCPCS: 36415; 71045; 71275; 80048; 80053; 83735; 84484; 85025; 85379; 85610; 85730; 87635; 93005; 93306; 96361; 96372; 96374; 99285; A9270; G0378; J1650; J2060; J7030; Q9967; U0002

== ENCOUNTER 2020-10-04 14:37 | Emergency (ER) | payer BC ==
--- NOTE | 2020-10-04 14:53 | EDM.PDOC ---
ED HPI GENERAL MEDICAL PROBLEM - General Chief Complaint: Upper Extremity Injury/Pain Stated Complaint: R SHOULDER DISLOCATION Time Seen by Provider: 10/04/20 14:41 - History of Present Illness INITIAL COMMENTS - FREE TEXT/NARRATIVE: History of present illness: This gentleman with prior shoulder dislocation dislocated his shoulder yesterday and reduced it himself at home. He continues to have pain and has extreme difficulty and pain with direct attempts to adduct it.. Review of systems: As per history of present illness and below otherwise all systems reviewed and negative. Past medical history: As per history of present illness and as reviewed below otherwise noncontributory. Surgical history: As per history of present illness and as reviewed below otherwise noncontributory. Social history: No reported history of drug or alcohol abuse. Family history: As per history of present illness and as reviewed below otherwise noncontributory. Physical exam: Constitutional - well developed, well-nourished and in no acute distress HEENT - normocephalic, no evidence of trauma - external nose and mouth normal - no mass in neck and no JVD - mucosae moist EYES - full EOM, PERRL, no icterus - no evidence of inflammation, injection, or drainage Respiratory - no respiratory distress, equal bilateral expansion Musculoskeletal incomplete abduction of the left shoulder. Pain with range of motion left shoulder. Otherwise no gross deformity of long bones or joints - no tenderness, swelling or edema Neurologic -sensorimotor intact in the left upper extremity alert and oriented times four - CN II-XII grossly intact - motor sensory and coordination symmetrically normal Psychiatric - appropriate mood and affect with normal thought content Hematologic - No petechiae or purpura - mucosa appropriate color and sclera not pale - normal nail bed color and refill Integument - no rash or evidence of trauma - normal turgor Diagnostics: [] Therapeutics: [] Impression: [] Plan: [] Definitive disposition and diagnosis as appropriate pending reevaluation and review of above. - Related Data Allergies Allergy/AdvReac Type Severity Reaction Status Date / Time azithromycin [From Zithromax] Allergy Hives Verified 10/04/20 15:00 Past Medical History - Infectious Disease History Infectious Disease History: Reports: None - Past Surgical History HEENT Surgical History: Reports: Oral Surgery, Tonsillectomy Social & Family History - Family History Family Medical History: No Pertinent Family History - Caffeine Use Caffeine Use: Reports: Coffee, Tea Review of Systems - Review of Systems Review Of Systems: Comprehensive ROS is negative, except as noted in HPI. ED EXAM, GENERAL - Physical Exam Exam: See Below Free Text/Narrative:: My physical exam is in the HPI Course - Orders/Labs/Meds Orders: Active Orders 24 hr Category Date Time Status Shoulder Comp Lt [CR] Stat Exams 10/04/20 14:46 Ordered Departure - Departure Time of Disposition: 15:13 Disposition: Home, Self-Care 01 Condition: Good Clinical Impression: Shoulder dislocation, Sprain of left shoulder - Discharge Information Instructions: Shoulder Sprain, Shoulder Dislocation, [id number] Referrals: PCP,Unknown [Primary Care Provider] - Forms: ED Department Discharge Additional Instructions: [facility] [address], [address] [place] [address] The following information is given to patients seen in the emergency department who are being discharged to home. This information is to outline your options for follow-up care. We provide all patients seen in our emergency department with a follow-up referral. The need for follow-up, as well as the timing and circumstances, are variable depending upon the specifics of your emergency department visit. If you don't have a primary care physician on staff, we will provide you with a referral. We always advise you to contact your personal physician following an emergency department visit to inform them of the circumstance of the visit and for follow-up with them and/or the need for any referrals to a consulting specialist. The emergency department will also refer you to a specialist when appropriate. This referral assures that you have the opportunity for follow-up care with a specialist. All of these measure are taken in an effort to provide you with optimal care, which includes your follow-up. Under all circumstances we always encourage you to contact your private physician who remains a resource for coordinating your care. When calling for follow-up care, please make the office aware that this follow-up is from your recent emergency room visit. If for any reason you are refused follow-up, please contact the [facility] Emergency Department at and asked to speak to the emergency department charge nurse.
[2020-10-04 15:47] VITALS: BP 108/62; PULSE 78
--- NOTE | 2020-10-04 15:50 | CR ---
HISTORY: Dislocation. TECHNIQUE: Three views of the left shoulder. COMPARISON: 07/08/2019. FINDINGS: No acute fracture or dislocation. Left glenohumeral and AC joints maintained. No abnormality within the included left lung. IMPRESSION: No acute fracture or dislocation. Dictated by Sb Lepe MD @ 10/04/2020 3:49:[address] Sb Lepe @ Oct 04 2020 3:49PM
== END 2020-10-04 15:44 | disposition home or self-care (01) ==
LOC: MW.ED 14:37
DX: S43.005A Unspecified dislocation of left shoulder joint, initial encounter (principal)
CPT/HCPCS: 73030-26-LT; 73030-LT; 99283-25